=== PATIENT | male | born 1940 | race Two or more races ===

== ENCOUNTER → 2021-02-11 | Emergency (ER) | payer OTHER ==
[~2021-02-11] VITALS: Ht 182.9 cm; Wt 90.7 kg
[~2021-02-11] MED LIST: AMLODIPINE 10 MG; CARAFATE1 GM PO; INTESTINEX680 M2 PO; LEVOTHYROXINE100 MC1; LEVSIN0.125 MG PO; PANTOPRAZOLE 40 MG; PEPCID AC20 MG; PEPCID AC20 MG PO; PROTONIX20 MG PO; VASOTEC20 M1
== END | disposition home or self-care (01) ==
LOC: EDSEX 17:33 → ER 17:33
DX: R10.13 Epigastric pain (principal)

== ENCOUNTER 2024-03-17 08:49 | Emergency (ER) | payer OTHER ==
[~2024-03-17] VITALS: Ht 182.9 cm; Wt 83.9 kg
[2024-03-17] MEDS ORDERED: AMLODIPINE BESY10 MG PO (09:06)
[2024-03-17] MEDS ORDERED: CLONAZEPAM0.5 MG PO (09:07)
[2024-03-17] MEDS ORDERED: TAMS0.4C PO (09:07)
[2024-03-17] MEDS ORDERED: DUTASTERIDE-TA1 EACH PO (09:08)
[2024-03-17 10:43] LABS: HEMATOCRIT 34.1 % (39.0-48.0); HEMOGLOBIN 12.2 g/dL (13-16.00); MEAN CELL VOLUME 89.8 fL (80.0-100.00); MEAN CORPUSCULAR HEMOGLOBIN 32.1 pg (27.00-32.0); MEAN CORPUSCULAR HGB CONC 35.7 g/dl (32.0-36.0); PLATELET COUNT 205 K/uL (150-450); RED BLOOD COUNT 3.79 M/uL (4.00-6.00); RED CELL DISTRIBUTION WIDTH 13.4 % (11.5-14.5)
[2024-03-17 11:09] LABS: CALCIUM 9.5 mg/dL (8.5-10.1); CREATININE SERUM 1.06 mg/dL (0.70-1.30); GFR 66.56; POTASSIUM 4.69 mEq/L (3.5-5.1)
[2024-03-17 12:18] LABS: PH,URINE 5.5 (5.0-8.0); URINE APPEARANCE Clear; URINE BILIRRUBIN Negative (NEGATIVE); URINE BLOOD Negative; URINE COLOR Yellow; URINE GLUCOSE Negative (NEGATIVE); URINE KETONE Negative (NEGATIVE); URINE LEUKOCYTE Negative; URINE NITRATE Negative; URINE PROTEIN Negative (NEGATIVE); URINE UROBILINOGEN 0.2 E.U./dl
[2024-03-17 12:19] LABS: URINE BACTERIA 20.1 uL (0.0-1933); URINE EPITHELIAL CELLS 3.3 uL (0.0-38.8); URINE WBC 3.8 uL (0.0-23.2)
[2024-03-17 12:20] LABS: URINE RBC 0.9 uL (0.0-20.8)
== END 2024-03-17 13:30 ==
LOC: ER 08:51
PROVIDERS: General Practice
DX: R30.0 Dysuria (principal); D64.9 Anemia, unspecified; I10 Essential (primary) hypertension